=== PATIENT | female | born 2000 | race African-American/Black ===

== ENCOUNTER 2022-03-07 18:15 | Emergency (ER) | payer OTHER ==
[~2022-03-07] VITALS: Ht 160 cm; Wt 55.3 kg
[2022-03-07] MEDS ORDERED: DOSTINEX PO (19:00)
[2022-03-07] MEDS ORDERED: HYDROCODON-ACE1 EAC3 PO (19:30)
== END 2022-03-07 20:53 | disposition home or self-care (01) ==
LOC: EMR PED 18:15
DX: R10.2 Pelvic and perineal pain (principal)